=== PATIENT | female | born 1960 | race Caucasian/White ===

== ENCOUNTER 2018-07-28 05:35 | Observation (INO) | payer OTHER ==
[~2018-07-28] VITALS: Ht 165.1 cm; Wt 85.0 kg
[~2018-07-28 05:35] MED LIST: LISINOPRIL40 MG PO; PANTOPRAZOLE SO40 MG PO; SINGULAIR10 MG PO; TOPROL XL25 MG PO; VIVELLE-DOT1 EAC1 TD
--- OUTSIDE RECORDS SUMMARY | 2018-07-28 05:37 | XMS REPORT | Clinical Summary ---
Author Author [facility]LEXANDR[facility] Organization [facility] Address Unknown Phone Unavailable Care Team Providers Care Taxi Proprietor Name Role Phone Pcp, No PCP Unavailable Allergies No Known Allergies Medications End Date Status Medication Sig Dispensed Refills Start Date Active estradiol (VIVELLE-DOT) Place 1 patch 0 0.0375 mg/24 hr patch onto the skin twice a week. Active metoprolol (TOPROL-XL) 25 Take 25 mg by 0 MG 24 hr tablet mouth daily. Active montelukast (SINGULAIR) Take 10 mg by 0 10 mg tablet mouth nightly. Active pantoprazole (PROTONIX) Take 40 mg by 0 40 MG tablet mouth daily. Active lisinopril-hydroCHLOROthi Take 1 tablet 0 azide by mouth (PRINZIDE,ZESTORETIC) daily. 10-12.5 mg per tablet Active Problems Problem Noted Date Palpitation 10/09/2017 Encounters Care Team Description Date Type Specialty Antwan Mosher MD 10/09/2017 Anesthesia Event Kayla Paul MD EPS & ABLATION 10/09/2017 Surgery Kayla Paul MD Palpitation 10/09/2017 Hospital Encounter 10/09/2017 Orders Only General Internal Medicine Kayla Paul MD Chest pain, unspecified type; Palpitations; Dizziness; Pre-syncope 09/02/2017 Hospital Radiology Encounter Kayla Paul MD Chest pain, unspecified type (Primary Dx); Palpitations; Dizziness; Pre-syncope 09/01/2017 Outside Orders Central Scheduling after 07/27/2017 Social History Date Tobacco Use Types Packs/Day Years Used Never Smoker Smokeless Tobacco: Never Used Alcohol Use Drinks/Week oz/Week Comments Yes 1 Glasses of 0.6 wine Sex Assigned at Date Recorded Not on file Industry Job Start Date Occupation Not on file Not on file Not on file Travel End Travel History Travel Start No recent travel history available. Last Filed Vital Signs Time Taken Vital Sign Reading 10/09/2017 4:15 PM CDT Blood Pressure 161/74 10/09/2017 4:15 PM CDT Pulse 64 10/09/2017 10:09 AM CDT Temperature 36.6 C (97.9 F) 10/09/2017 4:15 PM CDT Respiratory Rate 18 10/09/2017 4:15 PM CDT Oxygen Saturation 98% - Inhaled Oxygen - Concentration - Weight - 10/09/2017 10:09 AM CDT Height 165.1 cm (5' 5") - Body Mass Index - Plan of Treatment Not on file Procedures Comments Procedure Name Priority Date/Time Associated Diagnosis CARDIAC CATH REPORT - 10/09/2017 SCAN 5:31 PM CDT EPS & ABLATION 10/09/2017 Acute chest pain 1:00 PM CDT Palpitations Case Notes POP6 PVC W/CARTO AND (GENERAL ANESTHESIA ) ECG 12-LEAD Routine 10/09/2017 11:12 AM CDT (MANUAL DIFFERENTIAL) Routine 10/09/2017 10:32 AM CDT CBC WITH PLATELET COUNT + STAT 10/09/2017 MANUAL DIFF 10:32 AM CDT PROTHROMBIN TIME/INR STAT 10/09/2017 10:32 AM CDT CBC W/PLT+MANUAL DIFF STAT 10/09/2017 10:32 AM CDT BASIC METABOLIC PANEL (7) STAT 10/09/2017 10:32 AM CDT MR CARDIAC WITHOUT & WITH Routine 09/02/2017 Chest pain, unspecified CONTRAST 11:03 AM CDT type Palpitations Dizziness Pre-syncope POCT-CREATININE Routine 09/02/2017 9:31 AM CDT after 07/27/2017 Results * CARDIAC CATH REPORT - SCAN (10/09/2017 5:31 PM CDT) Narrative Performed At * ECG 12 lead (10/09/2017 11:12 AM CDT) Specimen Narrative Performed At Ventricular Rate 69 BPM [facility] Atrial Rate 69 BPM P-R Interval 198 ms QRS Duration 88 ms Q-T Interval 424 ms QTC Calculation(Bazett) 454 ms P [place] 56 degrees R [place] 23 degrees T [place] 29 degrees Normal sinus rhythm Normal ECG No previous ECGs available Confirmed by MD MARY JO, IHAB ([id number]) on 10/10/2017 2:47:12 PM Procedure Note Interface, External Ris In - 10/10/2017 2:47 PM CDT Ventricular Rate 69 BPM Atrial Rate 69 BPM P-R Interval 198 ms QRS Duration 88 ms Q-T Interval 424 ms QTC Calculation(Bazett) 454 ms P [place] 56 degrees R [place] 23 degrees T [place] 29 degrees Normal sinus rhythm Normal ECG No previous ECGs available Confirmed by MD MARY JO, IHAB ([id number]) on 10/10/2017 2:47:12 PM Performing Organization Address City/State/Zipcode Phone Number GE MUSE * Manual Differential (10/09/2017 10:32 AM CDT) % Neutros (manual) 57 % [facility] % Lymphs (manual) 29 % [facility] % Monos (manual) 8 % [facility] % Eos (manual) 5 % [facility] % Bands (manual) 1 0 - 10 % [facility] # Neutros (manual) 3.76 1.80 - 8.00 K/L [facility] # Lymphs (manual) 1.91 1.48 - 4.50 K/L [facility] # Monos (manual) 0.53 0.00 - 1.30 K/L [facility] # Eos (manual) 0.33 0.00 - 0.50 K/L [facility] # Bands (manual) 0.1 0.0 - 0.8 K/L [facility] Total Counted 100 [facility] Bands plus Segmented 3.83 [facility] Neutrophils [facility] WBC Morphology Normal [facility] Platelet Morphology Normal [facility] RBC Morphology Normal [facility] Specimen Blood Performing Organization Address City/[facility]/Zipcode Phone Number [facility] [address] [place] [address] [facility] * CBC with platelet count + manual diff (10/09/2017 10:32 AM CDT) WBC 6.6 3.5 - 10.5 K/L [facility] RBC 4.45 3.93 - 5.22 M/L [facility] Hemoglobin 13.7 11.2 - 15.7 GM/DL [facility] Hematocrit 39.8 34.1 - 44.9 % [facility] MCV 89.4 79.4 - 94.8 fL [facility] MCH 30.8 25.6 - 32.2 pg [facility] MCHC 34.4 32.2 - 35.5 GM/DL [facility] RDW 12.6 11.7 - 14.4 % [facility] Platelets 251 150 - 450 K/CU MM [facility] MPV 10.8 9.4 - 12.3 fL [facility] nRBC 0 0 - 0 /100 WBC [facility] Specimen Blood Performing Organization Address City/[facility]/Zipcode Phone Number [facility] [address] [place] [address] [facility] * Prothrombin time/INR (10/09/2017 10:32 AM CDT) Protime 14.3 11.7 - 14.7 seconds [facility] INR 1.1 <=5.9 [facility] Specimen Blood Narrative Performed At RECOMMENDED COUMADIN/WARFARIN INR THERAPY RANGES [facility] STANDARD DOSE: 2.0 - 3.0 Includes: PROPHYLAXIS for venous thrombosis, [facility] systemic embolization; TREATMENT for venous thrombosis and/or pulmonary embolus. HIGH RISK: Target INR is 2.5-3.5 for patients with mechanical heart valves. Performing Organization Address City/State/Zipcode Phone Number [facility] [address] [place] [address] [facility] * Basic Metabolic Panel (10/09/2017 10:32 AM CDT) Sodium 140 136 - 145 meq/L [facility] Potassium 3.8 3.5 - 5.1 meq/L [facility] Chloride 109 (H) 98 - 107 meq/L [facility] CO2 21 (L) 22 - 29 meq/L [facility] BUN 15 7 - 21 mg/dL [facility] Creatinine 0.71 0.57 - 1.25 mg/dL [facility] Glucose 99 70 - 105 mg/dL [facility] Calcium 9.5 8.4 - 10.2 mg/dL [facility] EGFR 85Comment: ESTIMATED GFR IS mL/min/1.73 sq m [facility] NOT ACCURATE CREATININE [facility] CLEARANCE IN PREDICTING GLOMERULAR FILTRATION RATE. ESTIMATED GFR IS NOT APPLICABLE FOR DIALYSIS PATIENTS. Specimen Blood Performing Organization Address City/[facility] Phone Number [facility] [address] [place] [address] [facility] * MR cardiac without & with IV contrast (09/02/2017 11:03 AM CDT) Specimen Narrative Performed At FINAL REPORT [facility] MRI dated 02 September 2017 INDICATION: This is a 57 years old female, with palpitation and premature beats, presents for assessment of the myocardial scarring. This study is performed in order to quantitate left ventricular function, and to determine myocardial viability and damage. TECHNIQUE: Yesika ACHIEVAMRI scanner. Morphologic and dynamic cine imaging were performed in multiple projections before and after contrast administration.Thereafter, gadolinium was administered, which was followed by viability/scar imaging.Finally, flow quantification sequences were performed to determine the degree of valvular dysfunction. Please refer to the contrast sheet scanned in the EPIC system for the amount and route of contrast given. Patient weighs 190 pounds, with height of 65 inches. Scanning blood pressure was 144/83. FINDINGS: The chest wall and mediastinum appears unremarkable.The pericardium and pulmonary arteries appear normal; no pericardial effusion is identified, in the central pulmonary artery is normal in calibre. Limited imaging through the lungs reveals no gross abnormalities; MR is not optimised in the assessment of pulmonary parenchymal lung disease.The cardiac chambers demonstrate normal atrioventricular and ventriculoarterial concordance, and systemic and pulmonary venous return. The thoracic aorta is normal in course, calibre, and contour. There is no evidence of acute aortic pathology, such as dissection, intramural hematoma, or contained rupture. The left ventricle is normal in size, shape, and function. No segmental wall motion abnormality is seen. No evidence of hypertrophic cardiomyopathy or left ventricular noncompaction. Quantitative values are as follows: GMZ=614 cc; ESV=64 cc; stroke volume=81 cc; and ejection fraction=56%.Calculated absolute cardiac output=5.2 liters/min.Absolute left ventricular mass=81 grams. The right ventricle is normal in size and function, by visual estimation. Normal systolic thickening is seen throughout the right ventricle myocardium. The RV size is smaller than the LV, as expected. No localized or generalized aneurysmal dilation is identified. Cine imaging and flow quantification reveals normal mitral, aortic and tricuspid valve function.No evidence of mitral valve prolapse or aortic stenosis is identified. Viability/scar imaging reveals uniformly "nulled" myocardium, indicating no prior myocardial damage.All of the left ventricular myocardium appears full thickness and viable. No abnormal enhancement of the myocardium is seen throughout the left and the right ventricular myocardium. Ventricular thrombus is not present. Flow curves suggest normal left and right atrial pressures. CONCLUSIONS: 1. Patient has a diagnosis of PVC. In this examination, the left ventricle is normal in size, shape, and function.Ejection fraction is quantified to be 56%. Quantitative left ventricular functional values are as described above. Viability/scar imaging is normal.There is no evidence of prior myocardial damage. There is no evidence of left ventricular noncompaction or hypertrophic cardiomyopathy present. 2.The right ventricle is normal in size and function. No abnormal enhancement of the myocardium is seen throughout the right ventricular myocardium. 3.Unremarkable valvular structures. 4.Normal left and right atrial pressures. Signed: Alfonso Mcpherson MD Report Verified Date/Time:09/02/2017 11:51:19 Reading Location: [facility] [id number] Cardiology MRI Procedure Note Interface, External Ris In - 09/02/2017 11:53 AM CDT FINAL REPORT Cardiac MRI dated 02 September 2017 INDICATION: This is a 57 years old female, with palpitation and premature beats, presents for assessment of the myocardial scarring. This study is performed in order to quantitate left ventricular function, and to determine myocardial viability and damage. TECHNIQUE: Yesika ACHIEVA MRI scanner. Morphologic and dynamic cine imaging were performed in multiple projections before and after contrast administration. Thereafter, gadolinium was administered, which was followed by viability/scar imaging. Finally, flow quantification sequences were performed to determine the degree of valvular dysfunction. Please refer to the contrast sheet scanned in the EPIC system for the amount and route of contrast given. Patient weighs 190 pounds, with height of 65 inches. Scanning blood pressure was 144/83. FINDINGS: The chest wall and mediastinum appears unremarkable. The pericardium and pulmonary arteries appear normal; no pericardial effusion is identified, in the central pulmonary artery is normal in calibre. Limited imaging through the lungs reveals no gross abnormalities; MR is not optimised in the assessment of pulmonary parenchymal lung disease. The cardiac chambers demonstrate normal atrioventricular and ventriculoarterial concordance, and systemic and pulmonary venous return. The thoracic aorta is normal in course, calibre, and contour. There is no evidence of acute aortic pathology, such as dissection, intramural hematoma, or contained rupture. The left ventricle is normal in size, shape, and function. No segmental wall motion abnormality is seen. No evidence of hypertrophic cardiomyopathy or left ventricular noncompaction. Quantitative values are as follows: CJQ=638 cc; ESV=64 cc; stroke volume=81 cc; and ejection fraction=56%. Calculated absolute cardiac output=5.2 liters/min. Absolute left ventricular mass=81 grams. The right ventricle is normal in size and function, by visual estimation. Normal systolic thickening is seen throughout the right ventricle myocardium. The RV size is smaller than the LV, as expected. No localized or generalized aneurysmal dilation is identified. Cine imaging and flow quantification reveals normal mitral, aortic and tricuspid valve function. No evidence of mitral valve prolapse or aortic stenosis is identified. Viability/scar imaging reveals uniformly "nulled" myocardium, indicating no prior myocardial damage. All of the left ventricular myocardium appears full thickness and viable. No abnormal enhancement of the myocardium is seen throughout the left and the right ventricular myocardium. Ventricular thrombus is not present. Flow curves suggest normal left and right atrial pressures. CONCLUSIONS: 1. Patient has a diagnosis of PVC. In this examination, the left ventricle is normal in size, shape, and function. Ejection fraction is quantified to be 56%. Quantitative left ventricular functional values are as described above. Viability/scar imaging is normal. There is no evidence of prior myocardial damage. There is no evidence of left ventricular noncompaction or hypertrophic cardiomyopathy present. 2. The right ventricle is normal in size and function. No abnormal enhancement of the myocardium is seen throughout the right ventricular myocardium. 3. Unremarkable valvular structures. 4. Normal left and right atrial pressures. Signed: Alfonso Mcpherson MD Report Verified Date/Time: 09/02/2017 11:51:19 Reading Location: [place] [address] Cardiology MRI Performing Organization Address City/[facility] Phone Number GE RIS * POC-Creatinine (09/02/2017 9:31 AM CDT) POC-Creatinine 0.6Comment: TESTED AT [facility] 0.6 - 1.3 mg/dL [place] [id number] [facility] POC-EGFR 104 mL/min/1.73M2 [facility] Specimen Blood Performing Organization Address City/[facility]/Zipcode Phone Number [facility] [address] [place] [address] [facility] after 07/27/2017 Insurance Payer Benefit Subscriber ID Type Phone Address Plan / Group [facility] - [facility] SHELL PPO xxxxxxxxx PPO CARE POS CVCP ONLY
--- OUTSIDE RECORDS SUMMARY | 2018-07-28 05:37 | XMS REPORT | Clinical Summary ---
Author Author [facility] Organization [facility] Address Unknown Phone Unavailable Care Team Providers Care Criminal Intelligence Analyst Name Role Phone PCP Unavailable Allergies Not on File Medications Not on file Active Problems Not on file Encounters Care Team Description Date Type Specialty 12/11/2017 Clinical Corporate Wellness Support after 07/27/2017 Immunizations Name Dates Previously Given Next Due FLUCELVAX QUAD PF (0.5mL 12/11/2017 syringe) Social History Date Tobacco Use Types Packs/Day Years Used Never Assessed Sex Assigned at Date Recorded Not on file Industry Job Start Date Occupation Not on file Not on file Not on file Travel End Travel History Travel Start No recent travel history available. Last Filed Vital Signs Not on file Plan of Treatment Health Maintenance Due Date Last Done Comments CERVICAL CANCER SCREENING 1983 BREAST CANCER SCREENING 01/15/2012 COLON CANCER SCREENING 01/15/2012 SHINGLES VACCINES (#1) 01/15/2012 INFLUENZA VACCINE 10/22/2018 12/11/2017 Results Not on fileafter 07/27/2017 Insurance Payer Benefit Subscriber ID Type Phone Address Plan / Group [employer] xxxxxxxxx HMO/PPO THCARE CHOICE/CHO ICE + (Home) [place] [address] Advance Directives Patient has advance care planning documents on file. For more information, dennis e contact: Yvan Hi [address] [place] [phone]
--- OUTSIDE RECORDS SUMMARY | 2018-07-28 05:37 | XMS REPORT ---
Author Author [facility] Address Unknown Phone Unavailable Care Team Providers Care Elementary Education Tutor Name Role Phone EVITA CHAMPAGNE Unavailable Unavailable Problems This patient has no known problems. Allergies, Adverse Reactions, Alerts This patient has no known allergies or adverse reactions. Medications This patient has no known medications. Results Test Description Test Time Test Comments Text Results Atomic Results Result Comments SCR MAMM BILATERAL LEATHA CAD DIGITAL 2018-07-16 10:51:11 - SCR MAMM BILATERAL LEATHA CAD DIGITALBILATERAL DIGITAL SCREENING MAMMOGRAM 3D/2D WITH CAD: 07/03/2018CLINICAL: Asymptomatic. Digital breast tomosynthesis was performed in addition to routine CC and MLO views. Current mammographic images were evaluated by either a [employer] M-Vu or a [employer] ImageChecker CAD (computer aided detection system). Comparison is made to exam dated 07/10/2017 mammogram - [facility]. There are scattered fibroglandular tissues in both breasts. No suspicious mass, architectural distortion, malignant type calcification, or lymph node abnormality detected. Breast architecture is stable compared to prior exams.IMPRESSION: NEGATIVEThere is no mammographic evidence of malignancy. Resume annual screening mammography in one year. Francois Balckmon M.D. et/penrad:07/16/2018 10:51:11 Lay Brother: Tierra BALTAZAR, [facility]-FWletter sent: BIRADS 1-2 Normal Mammogram BI-RADS: 1 Negative BASIC METABOLIC PANEL 2017-10-09 17:39:00 SODIUM (BEAKER) (test qmcl=226) 140 meq/L 136-145 POTASSIUM (BEAKER) (test fheg=866) 3.8 meq/L 3.5-5.1 CHLORIDE (BEAKER) (test wvjs=354) 109 meq/L 98-107 CO2 (BEAKER) (test xbio=705) 21 meq/L 22-29 BLOOD UREA NITROGEN (BEAKER) (test unpz=230) 15 mg/dL 7-21 CREATININE (BEAKER) (test jnua=971) 0.71 mg/dL 0.57-1.25 GLUCOSE RANDOM (BEAKER) (test bhso=893) 99 mg/dL 70-105 CALCIUM (BEAKER) (test tzab=161) 9.5 mg/dL 8.4-10.2 EGFR (BEAKER) (test tkhc=1248) 85 mL/min/1.73 sq m ESTIMATED GFR IS NOT ACCURATE CREATININE CLEARANCE IN PREDICTING GLOMERULAR FILTRATION RATE. ESTIMATED GFR IS NOT APPLICABLE FOR DIALYSIS PATIENTS. (MANUAL DIFFERENTIAL)2017-10-09 12:39:00* Test Item Value Reference Range Comments NEUTROPHILS - REL (DIFF) (BEAKER) (test kzuz=6677) 57 % LYMPHOCYTES - REL (DIFF) (BEAKER) (test cbvf=7184) 29 % MONOCYTES - REL (DIFF) (BEAKER) (test dhvv=8717) 8 % EOSINOPHILS - REL (DIFF) (BEAKER) (test joks=0906) 5 % BANDS - REL (DIFF) (BEAKER) (test bdsv=5543) 1 % 0-10 NEUTROPHILS - ABS (DIFF) (BEAKER) (test oszx=9172) 3.76 K/ L 1.80-8.00 LYMPHOCYTES - ABS (DIFF) (BEAKER) (test inds=7175) 1.91 K/ L 1.48-4.50 MONOCYTES - ABS (DIFF) (BEAKER) (test ajfy=4945) 0.53 K/ L 0.00-1.30 EOSINOPHILS - ABS (DIFF) (BEAKER) (test xwoz=4523) 0.33 K/ L 0.00-0.50 BANDS-ABS (DIFF) (BEAKER) (test naid=0931) 0.1 K/ L 0.0-0.8 TOTAL COUNTED (BEAKER) (test vplu=5806) 100 BANDS + SEGMENTED NEUTROPHILS (BEAKER) (test shuf=8368) 3.83 WBC MORPHOLOGY (BEAKER) (test fkpm=246) Normal PLT MORPHOLOGY (BEAKER) (test lqrm=362) Normal RBC MORPHOLOGY (BEAKER) (test bdut=879) Normal PROTHROMBIN TIME/[id number] 11:02:00* Test Item Value Reference Range Comments PROTIME (BEAKER) (test xlje=093) 14.3 seconds 11.7-14.7 INR (BEAKER) (test tyzt=767) 1.1 <=5.9 RECOMMENDED COUMADIN/WARFARIN INR THERAPY RANGESSTANDARD DOSE: 2.0 - 3.0 Inclu maurice: PROPHYLAXIS for venous thrombosis, systemic embolization; TREATMENT for foreign ous thrombosis and/or pulmonary embolus.HIGH RISK: Target INR is 2.5-3.5 for pat ients with mechanical heart valves.CBC WITH PLATELET COUNT + MANUAL DIFF 2017-10-09 10:44:00* Test Item Value Reference Range Comments WHITE BLOOD CELL COUNT (BEAKER) (test bmmt=741) 6.6 K/ L 3.5-10.5 RED BLOOD CELL COUNT (BEAKER) (test mnja=942) 4.45 M/ L 3.93-5.22 HEMOGLOBIN (BEAKER) (test xeuc=819) 13.7 GM/DL 11.2-15.7 HEMATOCRIT (BEAKER) (test gpqu=413) 39.8 % 34.1-44.9 MEAN CORPUSCULAR VOLUME (BEAKER) (test gnlo=218) 89.4 fL 79.4-94.8 MEAN CORPUSCULAR HEMOGLOBIN (BEAKER) (test sobc=085) 30.8 pg 25.6-32.2 MEAN CORPUSCULAR HEMOGLOBIN CONC (BEAKER) (test dyde=190) 34.4 GM/DL 32.2-35.5 RED CELL DISTRIBUTION WIDTH (BEAKER) (test dkum=092) 12.6 % 11.7-14.4 PLATELET COUNT (BEAKER) (test pwkx=952) 251 K/CU MM 150-450 MEAN PLATELET VOLUME (BEAKER) (test ghym=569) 10.8 fL 9.4-12.3 NUCLEATED RED BLOOD CELLS (BEAKER) (test ayiu=719) 0 /100 WBC 0-0 MR, CARDIAC, [id number] 11:51:00Reason for Exam:->Chest pain unspeficied typeReason for Exam:->PalpitattionsReason for Exam:->DizzinessReason for Exam:-> pre syncopeFINAL REPORT Cardiac MRI dated 02 September 2017 [...] ventricular noncompaction. Quantitative values are as follows: DLF=102 cc; ESV=64 cc; stroke volume=81 cc; and [...] valve function. No evidence of mitral valve prola pse or aortic stenosis is identified. Viability/scar imaging reveals uniformly " nulled" myocardium, indicating no prior myocardial damage. All of the left vent ricular myocardium appears full thickness and viable. No abnormal enhancement of the myocardium is seen throughout the left and the right ventricular myocardium. Ventricular thrombus is not present. Flow curves suggest normal left and right atrial pressures. CONCLUSIONS: 1. Patient has a diagnosis of PVC. In this exam ination, the left ventricle is normal in size, shape, and function. Ejection fr action is quantified to be 56%. Quantitative left ventricular functional value s are as described above. Viability/scar imaging is normal. There is no evidenc e of prior myocardial damage. There is no evidence of left ventricular noncompac tion or hypertrophic cardiomyopathy present. 2. The right ventricle is normal i n size and function. No abnormal enhancement of the myocardium is seen throughou t the right ventricular myocardium. 3. Unremarkable valvular structures. 4. No rmal left and right atrial pressures. Signed: Alfonso Mcpherson MDReport Verified Date/Time: 09/02/2017 11:51:19 Reading Location: [place] [address] Cardiology MRI -[id number] 09:36:00* Test Item Value Reference Range Comments POC-CREATININE (LUIS) (test ucjs=8822) 0.6 mg/dL 0.6-1.3 TESTED AT [facility] [address] [facility] [address] POC-EGFR (LUIS) (test qlxq=8615) 104 mL/min/1.73M2
[2018-07-28] MEDS ORDERED: BACITRACIN 50,000 UNIT VIAL ONE (06:19)
[2018-07-28] MEDS ORDERED: CEFAZOLIN SOD 1 GM/NS 50ML 50 ML IV ONE (06:41)
[2018-07-28] MEDS ORDERED: IBUPROFEN 800MG/ 250ML 250 ML IV ONE (08:48)
[2018-07-28] MEDS ORDERED: HYDROMORPHONE 2MG/ML 2 MG/ML ML ONE (11:28)
[2018-07-28] MEDS ORDERED: ONDANSETRON HCL 4 MG ORAL DISINTEGRATING TAB SL PRN (13:00)
[2018-07-28] MEDS ORDERED: HYDROCODONE/APAP 7.5MG-325MG 1 EA TAB PO PRN (13:00)
--- OUTSIDE RECORDS SUMMARY | 2018-07-28 13:17 | XMS REPORT | Clinical Summary ---
Author Author [facility] Organization [facility] Address Unknown Phone Unavailable Care Team Providers Care Public Relations Player Name Role Phone Pcp, No PCP Unavailable [...] 424 ms QTC Calculation(Bazett) 454 ms P [place] 56 degrees R [place] 23 degrees T [place] 29 degrees Normal sinus rhythm Normal ECG No previous ECGs available Confirmed by MD MARY JO, IHAB ([id number]) on 10/10/2017 2:47:12 PM Procedure Note Interface, External Ris In - 10/10/2017 2:47 PM CDT Ventricular Rate 69 BPM Atrial Rate 69 BPM P-R Interval 198 ms QRS Duration 88 ms Q-T Interval 424 ms QTC Calculation(Bazett) 454 ms P [place] 56 degrees R [place] 23 degrees T [place] 29 degrees Normal sinus rhythm Normal ECG No previous ECGs available Confirmed by MD MARY JO, IHAB ([id number]) on 10/10/2017 2:47:12 PM Performing Organization Address City/State/Zipcode Phone Number GE MUSE * Manual Differential (10/09/2017 10:32 AM CDT) % Neutros (manual) 57 % [facility] % Lymphs (manual) 29 % [facility] % Monos (manual) 8 % [facility] % Eos (manual) 5 % [facility] % Bands (manual) 1 0 - 10 % [facility] # Neutros (manual) 3.76 1.80 - 8.00 K/L [facility] # Lymphs (manual) 1.91 1.48 - 4.50 K/L [facility] # Monos (manual) 0.53 0.00 - 1.30 K/L [facility] # Eos (manual) 0.33 0.00 - 0.50 K/L [facility] # Bands (manual) 0.1 0.0 - 0.8 K/L [facility] Total Counted 100 [facility] Bands plus Segmented 3.83 [facility] Neutrophils [facility] WBC Morphology Normal [facility] Platelet Morphology Normal [facility] RBC Morphology Normal [facility] Specimen Blood Performing Organization Address City/[facility]/Zipcode Phone Number [facility] [address] [place] [address] [facility] * CBC with platelet count + manual diff (10/09/2017 10:32 AM CDT) WBC 6.6 3.5 - 10.5 K/L [facility] RBC 4.45 3.93 - 5.22 M/L [facility] Hemoglobin 13.7 11.2 - 15.7 GM/DL [facility] Hematocrit 39.8 34.1 - 44.9 % [facility] MCV 89.4 79.4 - 94.8 fL [facility] MCH 30.8 25.6 - 32.2 pg [facility] MCHC 34.4 32.2 - 35.5 GM/DL [facility] RDW 12.6 11.7 - 14.4 % [facility] Platelets 251 150 - 450 K/CU MM [facility] MPV 10.8 9.4 - 12.3 fL [facility] nRBC 0 0 - 0 /100 WBC [facility] Specimen Blood Performing Organization Address City/[facility]/Zipcode Phone Number [facility] [address] [place] [address] [facility] * Prothrombin time/INR (10/09/2017 10:32 AM CDT) Protime 14.3 11.7 - 14.7 seconds [facility] INR 1.1 <=5.9 [facility] Specimen Blood Narrative Performed At RECOMMENDED COUMADIN/WARFARIN INR THERAPY RANGES [facility] STANDARD DOSE: 2.0 - 3.0 Includes: PROPHYLAXIS for venous thrombosis, [facility] systemic embolization; TREATMENT for venous thrombosis and/or pulmonary embolus. HIGH RISK: Target INR is 2.5-3.5 for patients with mechanical heart valves. Performing Organization Address City/State/Zipcode Phone Number [facility] [address] [place] [address] [facility] * Basic Metabolic Panel (10/09/2017 10:32 AM CDT) Sodium 140 136 - 145 meq/L [facility] Potassium 3.8 3.5 - 5.1 meq/L [facility] Chloride 109 (H) 98 - 107 meq/L [facility] CO2 21 (L) 22 - 29 meq/L [facility] BUN 15 7 - 21 mg/dL [facility] Creatinine 0.71 0.57 - 1.25 mg/dL [facility] Glucose 99 70 - 105 mg/dL [facility] Calcium 9.5 8.4 - 10.2 mg/dL [facility] EGFR 85Comment: ESTIMATED GFR IS mL/min/1.[address] [facility] NOT ACCURATE CREATININE [facility] CLEARANCE IN PREDICTING GLOMERULAR FILTRATION RATE. ESTIMATED GFR IS NOT APPLICABLE FOR DIALYSIS PATIENTS. Specimen Blood Performing Organization Address City/[facility] Phone Number [facility] [address] [place] [address] [facility] * MR cardiac without & with IV contrast (09/02/2017 11:03 AM CDT) Specimen Narrative Performed At FINAL REPORT [employer] Cardiac MRI dated 02 September 2017 INDICATION: [...] ventricular noncompaction. Quantitative values are as follows: KPU=101 cc; ESV=64 cc; stroke volume=81 cc; and [...] MD Report Verified Date/Time:09/02/2017 11:51:19 Reading Location: [facility] [id number] Cardiology MRI Procedure Note Interface, External [...] ventricular noncompaction. Quantitative values are as follows: VDO=140 cc; ESV=64 cc; stroke volume=81 cc; and [...] Report Verified Date/Time: 09/02/2017 11:51:19 Reading Location: [place] [address] Cardiology MRI Performing Organization Address City/[facility] Cent[facility] Phone Number GE [facility] * POC-Creatinine (09/02/2017 9:31 AM CDT) POC-Creatinine 0.6Comment: TESTED AT [facility] 0.6 - 1.3 mg/dL [place] [id number] [facility] POC-EGFR 104 mL/min/1.73M2 [facility] Specimen Blood Performing Organization Address City/[facility]/Zipcode Phone Number [facility] [address] [place] [address] [facility] after 07/27/2017 Insurance Payer Benefit Subscriber ID Type Phone Address Plan / Group [facility] - [facility] SHELL PPO xxxxxxxxx PPO CARE POS CVCP ONLY
--- OUTSIDE RECORDS SUMMARY | 2018-07-28 13:17 | XMS REPORT | Clinical Summary ---
Author Author [facility] Organization [place] [facility] Address Unknown Phone Unavailable Care Team Providers Care Monorail Car Operator Name Role Phone PCP Unavailable Allergies Not [...] Type Phone Address Plan / Group [facility] xxxxxxxxx HMO/PPO THCARE CHOICE/CHO ICE + (Home) [place] [address] Advance Directives Patient has advance care planning documents on file. For more information, dennis e contact: Yvan Hi [address] [place] [id number]
[2018-07-28] MEDS ORDERED: FENTANYL CITRATE/PF 100MCG/2 ML INJ ONE (13:24)
[2018-07-28] MEDS ORDERED: MIDAZOLAM HCL 2 MG/2 ML VIAL ONE (13:24)
[2018-07-28 13:38] VITALS: BP 118/58
--- NOTE | 2018-07-28 13:38 | NUR ---
Patient arrived from PACU via bed. She was fully awake and alert. Dr. Simpson and s/o at the bedside. Bilateral breast dressing intact and transverse abdominal dressing with JPx2, small amt of bloody drainage on left side of abdomen noted. Dr. Simpson aware and voiced he will change dressing in AM. POC discussed Bed in lowest position, locked and call calderón within reach.
[2018-07-28 13:50] VITALS: BP 118/58
[2018-07-28 14:37] VITALS: BP 118/58
[2018-07-28] MEDS: LACTATED RINGER'S 1,000 ML IV SCH ×2 (15:47→22:50)
[2018-07-28] MEDS: CEFAZOLIN SOD 1 GM/NS 50ML 50 ML IV SCH ×2 (15:47→21:10)
[2018-07-28] MEDS ORDERED: HYDROMORPHONE 2MG/ML 2 MG/ML ML IV PRN (16:00)
[2018-07-28 16:35] VITALS: BP 137/66
[2018-07-28] MEDS ORDERED: DEXAMETHASONE SOD PHOS INJ 4 MG/ML VIAL ONE (17:28)
[2018-07-28] MEDS ORDERED: EPHEDRINE SULFATE INJ 50 MG/10 ML SYR ONE (17:28)
[2018-07-28] MEDS ORDERED: CEFAZOLIN SOD 1 GM VIAL ONE (17:28)
[2018-07-28] MEDS ORDERED: PROPOFOL IV EMULSION 10 MG/ML 20 ML VIAL ONE (17:28)
[2018-07-28] MEDS ORDERED: GLYCOPYRROLATE INJ 1MG/ 5 ML SYR ONE (17:28)
[2018-07-28] MEDS ORDERED: ONDANSETRON HCL INJ 2MG/ML 2ML 2 MG/ML VIAL ONE (17:28)
[2018-07-28] MEDS ORDERED: PHENYLEPHRINE HCL 1% 10 MG/ML VIAL ONE (17:28)
[2018-07-28] MEDS ORDERED: ROCURONIUM BROMIDE 10 MG/ML 5ML VIAL ONE (17:28)
[2018-07-28] MEDS ORDERED: LIDOCAINE HCL 2% LOCAL INJ 5 ML SDV VIAL INJ ONE (17:28)
[2018-07-28] MEDS ORDERED: SEVOFLURANE INHAL SOLN 250 ML PEN BTL ONE (17:28)
[2018-07-28] MEDS: DOCUSATE SODIUM 100 MG CAP PO SCH (17:36)
--- NOTE | 2018-07-28 19:11 | NUR ---
WALKING ROUNDS PERFORMED, RECEIVED PT LAYING SEMI FOWLERS IN BED, AAOX3, RR EVEN AND NON-LABORED, ON RA. NO S/SX OF DISTRESS NOTED. DRESSING TO BILATERAL BREASTS, AND ANTERIOR ABD NOTED TO BE CDI. DRAINAGE NOTED AT BILATERAL SONYA DRAIN SITES. DRAINAGE MARKED BY OFF GOING NURSE. LEFT PT LAYING SEMI FOWLERS IN BED, BED IN LOW LOCKED POSITION, SIDE RAILS UPX2, CALL LIGHT AND P[NELA WITHIN REACH.
--- NOTE | 2018-07-28 19:13 | NUR ---
Report given to oncoming shift. Walking rounds done.
[2018-07-28 20:00] VITALS: BP 131/62
[2018-07-28] MEDS: ACETAMINOPHEN 325 MG TAB PO PRN (21:10)
[2018-07-28 21:45] VITALS: BP 131/62
[2018-07-29] VITALS: BP 105/59
[2018-07-29] MEDS: ACETAMINOPHEN 325 MG TAB PO PRN ×2 (03:10→09:17)
[2018-07-29] MEDS: LACTATED RINGER'S 1,000 ML IV SCH (03:28)
[2018-07-29 04:00] VITALS: BP 114/58
[2018-07-29] MEDS: CEFAZOLIN SOD 1 GM/NS 50ML 50 ML IV SCH (06:16)
--- NOTE | 2018-07-29 06:36 | NUR ---
IV TO (L) HAND NOTED TO BE EDEMATOUS. IVF STOPPED. IV DISCONTINUED, CATHETER TIP INTACT. PRESSURE AND DRESSING APPLIED. NEW IV STARTED TO (L) FA.
[2018-07-29 07:44] VITALS: BP 123/62
--- NOTE | 2018-07-29 07:46 | NUR ---
RECEIVED PATIENT AWAKE RESTING IN BED. NO SIGNS OF DISTRESS. BED LOW, WHEELS LOCKED, SIDE RAILS X2, CALL LIGHT IN REACH WILL CONTINUE TO MONITOR.
[2018-07-29] MEDS: DOCUSATE SODIUM 100 MG CAP PO SCH (08:20)
[2018-07-29] MEDS ORDERED: MONTELUKAST SODIUM 10 MG TAB PO SCH (09:00)
[2018-07-29] MEDS ORDERED: ENOXAPARIN SOD INJ 40 MG/0.4 ML SYR SC SCH (09:00)
[2018-07-29] MEDS ORDERED: LISINOPRIL 20 MG TAB PO SCH (09:00)
[2018-07-29] MEDS ORDERED: PANTOPRAZOLE SOD 40 MG TABEC PO SCH (09:00)
[2018-07-29] MEDS ORDERED: METOPROLOL SUCCINATE 25 MG TAB XL PO SCH (09:00)
[2018-07-29 09:11] VITALS: BP 123/62
--- NOTE | 2018-07-29 09:15 | NUR ---
PATIENT A/O X3, EVEN RESPIRATIONS ON RA. ABDOMINAL DRESSING CLEAN, DRY, AND INTACT. BILATERAL BREAST DRESSINGS CLEAN, DRY, AND INTACT. LEFT FA IV 20 GAUGE WITH LR @ 100 CC/HR. PATIENT HAS VOIDED SINCE WALTER REMOVAL. AMBULATES WITH STANDBY ASSIST. SCD'S IN PLACE BILATERALLY. CALL LIGHT IN REACH WILL CONTINUE TO MONITOR .
--- NOTE | 2018-07-29 10:15 | NUR ---
REMOVED PATIENTS IV. CATHETER TIP INTACT AND PRESSURE DRESSING APPLIED.
--- NOTE | 2018-07-29 10:40 | NUR ---
PATIENT DISCHARGED FROM FACILITY. PATIENT GATHERED ALL PERSONAL BELONGINGS, DISCHARGE INSTRUCTIONS, FOLLOW UP INFORMATION. LEFT UNIT IN WHEELCHAIR AND WENT HOME VIA PRIVATE AUTO. NO SIGNS OF DISTRESS LEAVING FACILITY.
--- NOTE | 2018-07-29 18:07 | Operative Report ---
DATE OF PROCEDURE: 07/28/2018 SURGEON: Francois Alejandro MD PREOPERATIVE DIAGNOSES: 1. Bilateral macromastia. 2. Ventral hernia. 3. Abdominal lipodystrophy. POSTOPERATIVE DIAGNOSES: 1. Bilateral macromastia. 2. Ventral hernia. 3. Abdominal lipodystrophy. PROCEDURES: 1. Bilateral breast reduction. 2. Repair of ventral hernia. 3. Abdominoplasty. HISTORY: The patient is a 58-year-old female with said diagnoses. Risks, benefits, and alternatives to treatment were discussed with the patient. She has signed the [place] [employer] consent forms for breast reduction and abdominoplasty. PROCEDURE IN DETAIL: The patient was marked preoperatively in the holding area in the upright position. Standard Cooper pattern inferior pedicle technique markings were used for the breast and the abdominal incision was marked out as well. The patient was brought to the operating theater and after the induction of adequate general anesthesia, placement of a Stauffer catheter, and Betadine compression boots, she was prepped and draped in a supine position. A time-out was performed. Next, the procedure was begun on the breasts by circumscribing both nipple-areolar complexes with a 42 mm cookie cutter. A 12 cm wide inferiorly based pedicles were then marked out and then both breasts had the pedicles de-epithelialized using #10 blade. Once the pedicles had been de-epithelialized, the incisions for the medial and lateral borders of the pedicle were made through the subcutaneous and breast tissue using the electrocautery all the way down to the fascia of the pectoralis muscle. Care was taken to ensure that the pedicles remained adherent to the prepectoral fascia. Once the medial and lateral borders of the pedicles were developed, the apex of the pedicles were developed ensuring that several centimeters of tissue remained cephalad to the nipple-areolar complex to maintain vascularity. Once the pedicles had been completely developed, the breast tissue was undermined in the prepectoral plane widely up to the level of the clavicles in order to allow adequate redraping of the soft tissues without tension. At this juncture, the medial and lateral triangles were incised through the skin and subcutaneous tissues and bleeding was controlled using the electrocautery. At this point, once the medial and lateral triangles were removed, the superior flaps were elevated vertically and they were judiciously thinned using a curved Garcia scissors. Once the flaps had been thinned, the keyhole portion of the incisions were incised through the skin to subcutaneous tissue and then removed. At this juncture, both breasts were irrigated, checked for hemostasis and temporarily closed using surgical clips. The patient was sat up and assessed the symmetry, 510 g had been removed from the left side, 365 g had been removed from the right side. Several adjustments to both breasts were required in order to achieve adequate symmetry and additional maneuvers were required to achieve symmetry and the patient was made supine, the surgical clips were removed and the removal of additional tissue was performed. Once again, hemostasis was made absolute and wounds were temporarily closed with surgical clips. The patient was sat up once again and it was noted that the symmetry was satisfactory. She was made supine, all the surgical clips were removed, the pedicles were inspected and all the wounds were irrigated and hemostasis was made absolute once again. The wounds were closed in layers utilizing 3-0 Monocryl in an interrupted buried fashion to approximate the deep dermis and 4-0 Monocryl in a running subcuticular fashion to approximate the superficial tissues. At the completion of the procedure, both nipple-areolar complexes had satisfactory capillary refill and vascularity. Steri-Strips were applied to the incisions and sterile dressings were then applied. The performance of the ventral hernia repair and abdominoplasty was performed by marking out an incision approximately 7-8 cm above the introitus in the midline and then extending this towards the anterior superior iliac spines and towards the lateral hips. The incision was made through the skin and subcutaneous tissues and bleeding was controlled using electrocautery. The incision was deepened through the subcutaneous and Cindy's fascia and the anterior rectus fascia was then identified. Cephalad to the incision was the previous C-sections and the ventral hernia. Care was taken elevating the tissues off this area using electrocautery in order not to disrupt any more anterior abdominal fascia. Once the tissues had been satisfactorily elevated off the area of the previous C-sections, the ventral fascial defect was identified in the midline. At this point, using 0 Ethibond in an interrupted buried [id number] fashion, the anterior fascial defect was repaired. At this point, the umbilicus was sharply circumscribed and released from the anterior skin and subcutaneous tissues maintaining a generous amount of tissue around the umbilical stalk for vascularity. The anterior skin and subcutaneous tissues were then elevated off the anterior rectus fascia up to the level of the xiphoid in the midline and the costal margins bilaterally. Hemostasis was made absolute using the electrocautery. At this point, a rectus plication was marked out from xiphoid to pubic symphysis with its maximum width around the level of the umbilicus corresponding to approximately 8 cm. Using 0 Ethibond in an interrupted buried [id number] fashion, a fascial plication from xiphoid to the superior portion of the umbilicus was performed and then from below the umbilicus to the pubic symphysis. At the completion of the procedure, the plication was noted to be without fascial defects and no bleeding. At this juncture, the head of the bed was elevated to a 30-40 degree posture and the redundant skin and subcutaneous tissue of the anterior abdominal wall was marked out and judiciously excised. The wound edge was made hemostatic using the electrocautery. The mons pubis was de-fatted using the electrocautery in the deep subcutaneous plane in order to allow satisfactory contour. Once this was completed, the wounds were copiously irrigated with bacteriostatic saline and checked for hemostasis once again. Two 15-Emirati Alonzo-Greco drains were placed, one below the umbilicus and one above and secured to the lateral recesses of the incision with 3-0 nylon sutures in an interrupted fashion. Cindy's fascia was then approximated using 2-0 PDS in an interrupted buried fashion. The deep dermal tissues were approximated using an Insorb surgical stapler and the skin was then approximated with 4-0 nylon in a running subcuticular fashion. Directly above the umbilicus, a 2 cm vertical ellipse of tissue was marked out and incised through the skin and subcutaneous tissue and bleeding was controlled using the electrocautery. The umbilicus was then identified and at the 3 o'clock, 6 o'clock and 9 o'clock positions, 3-0 Monocryl suture was used through the fascia, the umbilicus, and into the skin edges in order to parachute the anterior abdominal wall down to the level of the umbilicus giving natural looking contour. Once these three stitches had been placed, additional 3-0 Monocryl sutures were placed in an interrupted buried fashion to finish approximating the umbilicus to the anterior abdominal wall. Interrupted 5-0 nylon sutures were then placed circumferentially around the umbilicus. At the completion of this maneuver, the umbilicus was noted to be inset nicely and was well vascularized. Steri-Strips were applied to the lower abdominal incision. The umbilicus was stented with Xeroform gauze and a sterile dressing was placed above it. Sterile dressings were then placed over the Steri-Strips and the drains were then placed on suction. The patient was returned to the recovery room in a head of bed posture position at 30-45 degrees and the knees flexed. The estimated blood loss for the entire procedure was approximately 150-200 mL. The patient was then admitted for overnight observation. MD ABBY Howard/ENRIQUE /[id number]
== END 2018-07-29 10:40 | disposition home or self-care (01) ==
LOC: OR 05:35 → PACU V 12:54 → MED/SURG 14:03
PROVIDERS: ADMIT Plastic Surgery; ATTEND Plastic Surgery
DX: N62 Hypertrophy of breast (principal); K43.9 Ventral hernia without obstruction or gangrene; L98.7 Excessive and redundant skin and subcutaneous tissue; I10 Essential (primary) hypertension; I49.3 Ventricular premature depolarization; E88.1 Lipodystrophy, not elsewhere classified
CPT/HCPCS: 17999; 19318; 49560; 88305; G0378 ×2; J0690 ×3; J1100; J1170; J1650; J2001; J2250; J2370; J2405; J2704; J3490; J7121; Q0162; S0164

== ENCOUNTER → 2019-05-27 | Day surgery (SDC) | payer SELFPAY ==
[~2019-05-27] MED LIST changes: +ACETAMINOPHEN 1000 MG/100 ML IV ONE; +BIOTE; +CEFAZOLIN SOD 1 GM/NS 50ML 50 ML IV ONE; +DEXAMETHASONE SOD PHOS INJ 4 MG/ML VIAL ONE; +EPINEPHRINE HCL 1:1000 1ML 1 MG/ML AMP ONE; +FENTANYL CITRATE/PF 100MCG/2 ML INJ ONE; +LIDOCAINE HCL 1% LOCAL INJ 20 ML VIAL ONE; +LIDOCAINE HCL 2% LOCAL INJ 5 ML SDV VIAL INJ ONE; +MIDAZOLAM HCL 2 MG/2 ML VIAL ONE; +MUPIROCIN 2% OINT 22 GM TUBE ONE; +ONDANSETRON HCL INJ 2MG/ML 2ML 2 MG/ML VIAL ONE; +PHENYLEPHRINE HCL 1% 10 MG/ML VIAL ONE; +PROPOFOL IV EMULSION 10 MG/ML 20 ML VIAL ONE; +SEVOFLURANE INHAL SOLN 250 ML PEN BTL ONE
--- NOTE | 2019-05-27 07:12 | NUR ---
SPIRITUAL CARE - Pre-Surgery Assessment: Pt in bed. Pt's [id number] at bedside. Pt reported supportive attention from family and friends. Intervention: I provided pastoral presence, hospitality, and sympathetic listening. I acquainted pt with availability of telecommunicator while hospitalized. Outcome: Pt expressed appreciation for visit. No need for follow up indicated at this time. FARZANEH [facility] Spiritual Care Department O: [phone]
[2019-05-27 10:25] VITALS: BP 141/89
--- NOTE | 2019-05-28 13:43 | Operative Report ---
DATE OF PROCEDURE: 05/27/2019 SURGEON: Francois Alejandro MD PREOPERATIVE DIAGNOSES: Localized adiposity of hips, medial thighs, and upper abdomen. POSTOPERATIVE DIAGNOSES: Localized adiposity of hips, medial thighs, and upper abdomen. PROCEDURE: Suction assisted lipectomy of hips, medial thighs, and upper abdomen. ANESTHESIA: General. HISTORY: The patient is a 59-year-old female, who complains of localized adiposity in the areas of the lateral hips, the medial thighs and the upper portion of the abdomen. Risks, benefits, and alternatives of treatment were discussed with the patient and she has signed the [place] [employer] consent forms. PROCEDURE IN DETAIL: The patient was marked preoperatively in the holding area in the upright position. She was brought to the operating theater and after the induction of adequate general anesthesia, placement of a Stauffer catheter and Venodyne compression boots, she was prepped and draped in a supine position. The procedure was begun by making small incisions in the areas for the proposed suction. Standard Hunstad formula was then used as a tumescent solution and injected through the injector cannulas into the areas. The volume on the right hip was 400 mL, on the left hip was 400 mL, on the right medial thigh 300 mL, left medial thigh 300 mL, right upper chest 200 mL, and left chest 200 mL. Then, after waiting appropriate amount of time for maximum vasoconstrictive effect, the areas were suctioned using a cross hatching technique using cannulas of decreasing diameter for starting with a 4 mm cannula followed by 3 and then by 2, taking care to feather the areas and prevent over resection of the subcutaneous fat. The total volumes for the right hip 400 mL, left hip 300 mL, right thigh 150 mL, left thigh 150 mL, and the left upper chest 50 and the right upper chest 100 mL. At this point, the incisions were closed with 5-0 chromic sutures. Bactroban ointment and sterile dressings were applied. The patient was then placed in a post surgical compressive garment using padding to place extra pressure on the areas that were suctioned. The estimated blood loss of the procedure was approximately 50 mL. She tolerated the procedure well and was brought to recovery room in satisfactory condition and discharged with a postoperative instruction sheet as well as a followup appointment. MD ABBY Howard/MODL /[id number]
== END | disposition home or self-care (01) ==
LOC: OR 05:29
PROVIDERS: ATTEND Plastic Surgery
DX: E65 Localized adiposity (principal); I10 Essential (primary) hypertension; K21.9 Gastro-esophageal reflux disease without esophagitis; Z01.810 Encounter for preprocedural cardiovascular examination
CPT/HCPCS: 15877; 15879; 93005; J0131; J0171; J0690; J1100; J2001 ×2; J2250; J2370; J2405; J2704; J3010